=== PATIENT | female | born 2000 | race African-American/Black ===

== ENCOUNTER 2021-05-24 11:36 | Outpatient (REF) | payer OTHER, SELFPAY ==
[2021-05-24 13:44] LABS: COVID-19 Test Positive (Negative)
== END 2021-05-24 11:37 | disposition home or self-care (01) ==
LOC: HO.LAB 11:36
PROVIDERS: Visit Provider Internal Medicine
DX: Z20.822 Contact with and (suspected) exposure to COVID-19 (principal)
CPT/HCPCS: 87635; C9803

== ENCOUNTER 2023-12-27 09:50 | Outpatient (REF) | payer OTHER, SELFPAY ==
[2023-12-29 04:10] LABS: HBS Num1 0.38 mIU/mL (0-7.99); ~Hepatitis B Surface Antibody NONREACTIVE (Nonreactive)
== END 2023-12-27 09:51 | disposition home or self-care (01) ==
LOC: HO.LAB 09:50
PROVIDERS: Visit Provider Nurse Practitioner Family
DX: Z01.84 Encounter for antibody response examination (principal)
CPT/HCPCS: 36415; 86706; 86735; 86762; 86765